=== PATIENT | male | born 1980 | race Caucasian/White ===

== ENCOUNTER 2021-09-30 08:29 | Emergency (ER) | payer OTHER ==
[~2021-09-30] VITALS: Ht 172.7 cm; Wt 108.9 kg
[~2021-09-30 08:29] MED LIST: ADDERALL 10 MG10 MG PO; ADDERALL 20 MG20 M1 PO; AMBIEN 5 MG TABL5 M1 PO; COLACE100 MG PO; CYCLOBENZAPRINE10 MG PO; FLEXERIL PO; FLOMAX0.4 MG PO; GLUCOPHAGE XR500 MG PO; JANUVIA100 MG PO; KLOR-CON M2020 MEQ PO; LASIX 40 MG TAB40 M1 PO; LIPITOR10 MG PO; MIRALAX17 GM PO; NEURONTIN600 MG PO; OXCARBAZEPINE300 M1 PO; OXCARBAZEPINE300 MG PO; OXYCONTIN10 M1 PO; PERCOCET 10-321 EACH PO; PERCOCET 7.5-31 EACH PO; POTASSIUM20 PO; TRADJENTA5 MG PO; XANAX 0.25 MG0.25 MG PO; XARELTO10 MG PO; ZOCOR20 MG PO
[2021-09-30 08:35] VITALS: BP 121/81
[2021-09-30] MEDS ORDERED: PREDNISONE 20 M20 M1 PO (09:51)
[2021-09-30] MEDS ORDERED: HYDROCODON-ACE1 EAC7 PO (09:51)
== END 2021-09-30 09:57 | disposition home or self-care (01) ==
LOC: M.ERS 08:29
DX: M10.9 Gout, unspecified (principal); E11.9 Type 2 diabetes mellitus without complications; G47.30 Sleep apnea, unspecified; E78.00 Pure hypercholesterolemia, unspecified; F17.210 Nicotine dependence, cigarettes, uncomplicated; Z90.89 Acquired absence of other organs; Z90.49 Acquired absence of other specified parts of digestive tract; Z79.899 Other long term (current) drug therapy; Z88.8 Allergy status to other drugs, medicaments and biological substances

== ENCOUNTER 2021-10-04 19:34 | Emergency (ER) | payer OTHER ==
[~2021-10-04] VITALS: Ht 172.7 cm; Wt 108.9 kg
[~2021-10-04 19:34] MED LIST changes: +HYDROCODON-ACE1 EAC7 PO; +PREDNISONE 20 M20 M1 PO
[2021-10-05 00:26] VITALS: BP 120/80
== END 2021-10-05 00:25 | disposition home or self-care (01) ==
LOC: M.ERS 19:34
DX: R40.0 Somnolence (principal); E78.00 Pure hypercholesterolemia, unspecified; Z88.8 Allergy status to other drugs, medicaments and biological substances; Z79.899 Other long term (current) drug therapy; Z90.89 Acquired absence of other organs; Z98.890 Other specified postprocedural states

== ENCOUNTER 2021-12-14 17:34 | Emergency (ER) | payer OTHER ==
[~2021-12-14] VITALS: Ht 172.7 cm; Wt 117.9 kg
[2021-12-14 18:21] LABS: ABSOLUTE EOSINOPHILS 0.2 thou/uL (0.0-0.7); ABSOLUTE LYMPHOCYTES 1.8 thou/uL (0.8-5.3); ABSOLUTE MONOCYTES 1.1 thou/uL (0.0-1.2); ABSOLUTE NEUTROPHILS 6.8 thou/uL (1.6-8.1); BASOPHILS 0.4 %; HEMATOCRIT 39.1 % (42.0-52.0); HEMOGLOBIN 13.4 gm/dL (14.0-18.0); LYMPHOCYTES 18.1 %; MCH 29.4 pg (26.0-34.0); MCHC 34.3 g/dL (28.0-37.0); MCV 85.6 fL (80.0-100.0); MPV 8.2 fl. (7.2-11.1); NUCLEATED RBCS 0 /100WBC; PLATELET COUNT* 248 thou/uL (150-400); POLYS 68.5 %; RBC 4.57 mil/uL (4.50-6.00); RDW-CV 12.9 % (10.5-14.5); WBC 9.9 thou/uL (4.0-11.0)
[2021-12-14 18:31] LABS: CALCIUM 8.7 mg/dL (8.5-10.1); CREATININE 0.7 mg/dL (0.6-1.3); POTASSIUM 3.5 mmol/L (3.5-5.1)
[2021-12-14 18:41] LABS: ALBUMIN 3.2 g/dL (3.4-5.0); TOTAL BILIRUBIN 0.2 mg/dL (<0.1-1.0); TOTAL PROTEIN 7.5 g/dL (6.4-8.2)
[2021-12-14] MEDS ORDERED: PREDNISONE50 MG PO (20:48)
[2021-12-14] MEDS ORDERED: PROAIR HFA8.5 GM INH (20:48)
[2021-12-14] MEDS ORDERED: AMOX TR-K CLV1 EAC4 PO (20:48)
[2021-12-14 21:06] VITALS: BP 100/58
--- NOTE | 2021-12-15 12:55 | EKG ---
[place] [address] ELECTROCARDIOGRAM REPORT Name: VIKTOR RAMESH Room: [facility]#: [id number] Admission: 12/14/21 Attend Phys: Discharge: 12/14/21 Date of : 82 Date of Service: 12/14/21 1758 Report #: [id number] THIS REPORT FOR: //name// [facility] ED Test Date: 2021-12-14 Test Time: 17:58:17 Pat Name: VIKTOR RAMESH Department: Room: Gender: Security Incident Handler: KJ : [id number] Requested By: Terrell Fan Order Number: [id number] MD: Matthew Miranda Measurements Intervals [place] Rate: 94 P: 1 UT: 157 QRS: -11 QRSD: 93 T: 33 QT: 341 QTc: 427 Interpretive Statements Sinus rhythm Abnormal R-wave progression, early transition Borderline T wave abnormalities Baseline wander in lead(s) V4 Compared to ECG 10/04/2021 19:44:39 Sinus tachycardia no longer present Left ventricular hypertrophy no longer present T-wave abnormality still present Electronically Signed On 12-15-2021 12:55:12 [employer] by Matthew Miranda [email or web address] <ELECTRONICALLY SIGNED> By: Matthew Miranda MD, [facility] 12/15/21 1255 1758 1758 Matthew Miranda MD, [facility] /EPI
== END 2021-12-14 21:06 | disposition home or self-care (01) ==
LOC: M.ERS 17:34
PROVIDERS: Physician Assistant
DX: U07.1 COVID-19 (principal); J12.82 Pneumonia due to coronavirus disease 2019; M25.511 Pain in right shoulder; E11.9 Type 2 diabetes mellitus without complications; F98.8 Other specified behavioral and emotional disorders with onset usually occurring in childhood and adolescence; F31.9 Bipolar disorder, unspecified; E78.00 Pure hypercholesterolemia, unspecified; Z98.890 Other specified postprocedural states; Z90.89 Acquired absence of other organs; Z90.49 Acquired absence of other specified parts of digestive tract; Z88.8 Allergy status to other drugs, medicaments and biological substances